=== PATIENT | female | born 1940 | race Native Hawaiian/Other Pacific Islander ===

== ENCOUNTER 2018-05-12 08:44 | Outpatient (CLI) | payer OTHER | END 2018-05-12 21:41 | disposition home or self-care (01) | LOC: RESP 08:44 | DX: I25.10 Atherosclerotic heart disease of native coronary artery without angina pectoris (principal) | CPT/HCPCS: 93306 ==

== ENCOUNTER 2018-08-12 10:38 | Outpatient (CLI) | payer OTHER | END 2018-08-12 19:22 | disposition home or self-care (01) | LOC: MRI 10:38 | DX: M51.36 Other intervertebral disc degeneration, lumbar region (principal) ==

== ENCOUNTER 2019-02-23 08:07 | Outpatient (CLI) | payer OTHER | END 2019-02-23 20:10 | disposition home or self-care (01) | LOC: NM 08:07 | DX: R07.89 Other chest pain (principal) | CPT/HCPCS: A9500 ==

== ENCOUNTER 2020-04-26 10:16 | Outpatient (CLI) | payer OTHER | END 2020-04-26 21:51 | disposition home or self-care (01) | LOC: MAMMO 10:16 | PROVIDERS: ATTEND Nurse Practitioner Family | DX: Z12.31 Encounter for screening mammogram for malignant neoplasm of breast (principal) ==

== ENCOUNTER 2020-10-28 12:48 | Outpatient (CLI) | payer OTHER | END 2020-10-28 19:13 | disposition home or self-care (01) | LOC: US 12:48 | PROVIDERS: ATTEND Internal Medicine Cardiovascular Disease | DX: R09.89 Other specified symptoms and signs involving the circulatory and respiratory systems (principal) ==

== ENCOUNTER 2020-12-24 08:42 | Outpatient (CLI) | payer OTHER | END 2020-12-24 19:33 | disposition home or self-care (01) | LOC: CT 08:42 | PROVIDERS: ATTEND Internal Medicine Cardiovascular Disease | DX: I65.29 Occlusion and stenosis of unspecified carotid artery (principal) | CPT/HCPCS: 36415; 82565; 84520; Q9963 ==

== ENCOUNTER 2022-11-24 15:44 | Outpatient (CLI) | payer OTHER ==
[2022-11-24 16:02] LABS: PLATELET COUNT 218 K/uL (152-353)
[2022-11-24 16:21] LABS: POTASSIUM 4.3 mmol/L (3.6-5.2)
== END 2022-11-24 19:01 | disposition home or self-care (01) ==
LOC: LAB 15:44
PROVIDERS: ATTEND Internal Medicine
DX: E03.8 Other specified hypothyroidism (principal); I25.10 Atherosclerotic heart disease of native coronary artery without angina pectoris; I10 Essential (primary) hypertension; R82.998 Other abnormal findings in urine; E55.9 Vitamin D deficiency, unspecified
CPT/HCPCS: 80053; 80061; 81000; 82306; 84439; 84443; 85027; 87086; 87088

== ENCOUNTER 2023-04-29 08:33 | Outpatient (CLI) | payer OTHER | END 2023-04-29 19:25 | disposition home or self-care (01) | LOC: US 08:33 | PROVIDERS: ATTEND Internal Medicine | DX: R10.13 Epigastric pain (principal) ==